=== PATIENT | female | born 1955 | race Caucasian/White ===

== ENCOUNTER → 2016-08-31 | Outpatient (CLI) | payer OTHER ==
--- NOTE | 2016-08-31 09:02 | MA ---
Screening Digital Mammogram With iCAD Analysis Reason for Examination: Routine screening. Breast parenchymal density: Type B; Scattered fibroglandular densities. Technique: Four views of each breast are obtained including CC and oblique lateral Aureliano (implant di splaced) and non-Aureliano (implant not displaced) views. Images were reviewed using the iCAD computer a ided detection system. Comparison: August 2015, May 2013, May 2012, April 2011. Findings: Breast implants are in place bilaterally. iCAD is reviewed. There is possible developing as ymmetry in the upper slightly outer right breast best demonstrated on implant-displaced views. No patricia picious microcalcifications are seen. The left breast is stable in appearance. Breast implants dimini sh the sensitivity of mammography. Impression: Possible developing right breast asymmetry requires further evaluation, BI-RADS 0. Recommendation: Spot compression assessment of the right breast with ultrasound suggested if the abno rmality persists on diagnostic evaluation. [facility] will send a result letter to the patient. Negative mammography should not preclude additional workup of a clinically suspicious finding. The patient's information is entered into a reminder system with a target due date for her next mammo gram.
== END ==
LOC: CIMAGING 07:11
DX: Z12.31 Encounter for screening mammogram for malignant neoplasm of breast (principal)
CPT/HCPCS: G0202

== ENCOUNTER → 2016-09-08 | Outpatient (CLI) | payer OTHER ==
--- NOTE | 2016-09-08 15:27 | MA ---
Diagnostic Digital Right Mammography Clinical History: 61-year-old female with a prior history of breast augmentation with no family histo ry of breast cancer noted to have a possible developing asymmetry in the right breast on recent scree cinda study. TECHNIQUE: Implant displaced lateral medial and spot compression implant displaced craniocaudal and M LO views of the right breast are compared with previous studies dated 09/10/2016, 08/27/2015, 06/07/2013 , 05/30/2012, and 05/11/2011. Additionally, exam is CAD checked. Breast Density: Type II. CAD Evaluation: Reviewed. FINDINGS: The area of recently-questioned parenchymal asymmetry does not persist with spot compressio n, and appears to have been related to superimposition of normal fibroglandular structures. IMPRESSION: Benign mammography. BI-RADS category 2. Recommendation: Routine annual mammographic screening. [facility] will send a result letter to the patient. Negative mammography should not preclude additional workup of a clinically suspicious finding. The patient's information is entered into a reminder system with a target due date for her next mammo gram.
== END ==
LOC: CIMAGING 13:08
DX: R92.2 Inconclusive mammogram (principal)
CPT/HCPCS: G0206

== ENCOUNTER → 2016-11-25 | Outpatient (CLI) | payer OTHER | LOC: CIMAGING 07:06 | PROVIDERS: ATTEND Internal Medicine Endocrinology, Diabetes & Metabolism | DX: E04.2 Nontoxic multinodular goiter (principal) | CPT/HCPCS: 76536-PO ==

== ENCOUNTER → 2017-05-04 | Outpatient (CLI) | payer OTHER | LOC: CIMAGING 13:37 | PROVIDERS: ATTEND Internal Medicine Endocrinology, Diabetes & Metabolism | DX: M25.551 Pain in right hip (principal); W19.XXXA Unspecified fall, initial encounter; M25.561 Pain in right knee; M25.461 Effusion, right knee | CPT/HCPCS: 73502-PO; 73564-PO ==

== ENCOUNTER → 2017-06-23 | Outpatient (CLI) | payer OTHER | LOC: CIMAGING 07:15 | PROVIDERS: ATTEND Internal Medicine Endocrinology, Diabetes & Metabolism | DX: J40 Bronchitis, not specified as acute or chronic (principal) | CPT/HCPCS: 71020-PO ==

== ENCOUNTER 2017-09-03 16:49 | Emergency (ER) | payer OTHER ==
[2017-09-03 16:54] VITALS: RESP 16
[2017-09-03 17:05] VITALS: PULSE 78
--- NOTE | 2017-09-03 17:20 | EDPHY ---
H & P Time Seen by Provider: 09/03/17 17:06 HPI/ROS: This patient was walking her dog when she tripped on irregularity in the surface she is walking on and landed on her face with injury to her nose and 1: 30 p.m. today. She reports 5/10 nasal pain to the bridge of the nose with associated ecchymosis and swelling. She had bilateral epistaxis for sometime that resolved prior to arrival as well. She also reports a injury to her upper lip describing swelling to that area fleeting bleeding and a feeling of tingling. Bothered by the feeling of tingling after conversation with her neighbor this patient decided to come in for evaluation. She drove herself here by private vehicle. ROS: She felt well with no constitutional symptoms prior to the mechanical fall. Neuro: No generalized headache. No LOC. She was not days. No focal numbness tingling weakness. Integumentary: No lacerations. HEENT-no dental injuries per patient Musculoskeletal: No midline neck or back pain. No extremity injuries. 7 point ROS is otherwise negative Past Medical/Surgical History: Dyslipidemia Hypertension GERD Hypothyroid Smoking Status: Never smoked Physical Exam: Physical Exam Vital signs are normal. General: No acute distress HEENT: Patient has moderate swelling to the nasal bridge with associated ecchymosis. However the nose remains midline. On exam of her nares appreciate no septal hematoma. Epistaxis has resolved. She is able to move air through both nares. No zygoma tenderness or other evidence of facial trauma except for mild swelling to the upper lip with a superficial abrasion with no active bleeding. Intraoral exam reveals no dental trauma. No intraoral lacerations. No malocclusion or mandible tenderness. Eyes: Pupils equal and react to light. Extraocular motions are intact. Lungs: No respiratory distress. No midline neck or back pain. Cardiac: Brisk capillary refill is intact throughout. Regular rate and rhythm with no murmur gallop or rub Skin: Abrasion to the nasal bridge-no full-thickness injury no active bleeding. Superficial abrasion to the upper lip with no active bleeding. Neuro: GCS 15. No cranial nerve deficits. No focal sensory deficits are appreciated Initial differential diagnosis: Nasal fracture, nasal contusion, upper lip abrasion Constitutional: Initial Vital Signs Temperature (C) 37 C 09/03/17 16:51 Heart Rate 82 09/03/17 16:51 Respiratory Rate 16 09/03/17 16:51 Blood Pressure 169/79 H 09/03/17 16:51 O2 Sat (%) 97 09/03/17 16:51 O2 Delivery Mode Room Air Allergies/Adverse Reactions: No Known Allergies Allergy (Verified 09/03/17 16:54) Home Medications: Medication Instructions Recorded Crestor 08/13/16 Diovan 08/13/16 Prozac 40 mg 08/13/16 Rotigotine [Neupro] 08/13/16 Synthroid 08/13/16 MDM/Departure - [facility] ED Course/Re-evaluation: Her abrasions were clean by our tech Roland. The patient's clinical findings are consistent with a nondisplaced nasal fracture. I counseled regarding this. I explained that we do not typically imaged these injuries and see no evidence of septal hematoma or other complicating factors. Patient will follow up with Dr. Cazares of ENT if she feels she has any nasal asymmetry after swelling has diminished. She has no evidence of significant closed head injury, neck injury or other complicating factors tonight. However she understands need to return emergency department should she have onset of additional symptoms or worsening of existing symptoms despite the treatment plan. She declined any analgesics while here and did not want anything more potent ibuprofen Tylenol for home. - Depart Disposition: Home, Routine, Self-Care Clinical Impression: Nasal fracture Qualifiers: Encounter type: initial encounter Fracture type: closed Qualified Code(s): S02.2XXA - Fracture of nasal bones, initial encounter for closed fracture Nasal abrasion Qualifiers: Encounter type: initial encounter Qualified Code(s): S00.31XA - Abrasion of nose, initial encounter Abrasion of lip Qualifiers: Encounter type: initial encounter Qualified Code(s): S00.511A - Abrasion of lip , initial encounter Condition: Good Instructions: Nasal Fracture (ED), Abrasion (ED) Additional Instructions: Diagnosis: Nasal fracture 2. Nasal abrasion 2. Lip abrasion Plan: Gently clean your abrasions daily Ibuprofen and Tylenol for pain as needed Ice to the injured areas 20 min at a time to 3 times a day for the next few days If in 5 days or so he feel that your nose is asymmetric and bothers the cosmetically, he can call Dr. Cazares ENT physician to arrange follow-up appointment for evaluation. Also if your unable to breathe through 1 side of your nose a beat other recent follow-up. Return emergency department if he develops severe headache or other concerns. Referrals: DIGNA NELSON [Primary Care Provider] - As per Instructions Sohail Cazares MD [Medical Doctor] - As per Instructions
[2017-09-03 17:47] VITALS: BP 125/80; TEMP 97.7; O2SAT 94
== END 2017-09-03 17:47 | disposition home or self-care (01) ==
LOC: CED 16:49
DX: S02.2XXA Fracture of nasal bones, initial encounter for closed fracture (principal); S00.511A Abrasion of lip, initial encounter; S00.31XA Abrasion of nose, initial encounter; I10 Essential (primary) hypertension; W01.0XXA Fall on same level from slipping, tripping and stumbling without subsequent striking against object, initial encounter; Y99.8 Other external cause status; Y93.K1 Activity, walking an animal

== ENCOUNTER → 2017-10-21 | Outpatient (CLI) | payer OTHER | LOC: CIMAGING 07:18 | PROVIDERS: ATTEND Internal Medicine Endocrinology, Diabetes & Metabolism | DX: Z12.31 Encounter for screening mammogram for malignant neoplasm of breast (principal) ==

== ENCOUNTER → 2018-04-28 | Outpatient (CLI) | payer OTHER | LOC: FIMAGING 08:43 | PROVIDERS: ATTEND Internal Medicine Endocrinology, Diabetes & Metabolism | DX: Z13.6 Encounter for screening for cardiovascular disorders (principal); E78.5 Hyperlipidemia, unspecified | CPT/HCPCS: 0126T ==

== ENCOUNTER → 2018-10-24 | Outpatient (CLI) | payer OTHER | LOC: CIMAGING 07:21 | PROVIDERS: ATTEND Internal Medicine Endocrinology, Diabetes & Metabolism | DX: Z12.31 Encounter for screening mammogram for malignant neoplasm of breast (principal) ==

== ENCOUNTER → 2018-10-26 | Outpatient (CLI) | payer OTHER | LOC: BMCIMAGING 09:48 | PROVIDERS: ATTEND Internal Medicine Endocrinology, Diabetes & Metabolism | DX: R92.8 Other abnormal and inconclusive findings on diagnostic imaging of breast (principal) ==

== ENCOUNTER → 2018-12-26 | Outpatient (CLI) | payer OTHER ==
[~2018-12-26] MED LIST: LIDOCAINE 1% 300 MG/30 ML SDV ONE
== END ==
LOC: FIMAGING 07:39
PROVIDERS: ATTEND Internal Medicine Endocrinology, Diabetes & Metabolism
DX: E04.9 Nontoxic goiter, unspecified (principal)